=== PATIENT | male | born 1950 | race Caucasian/White ===

== ENCOUNTER 2018-08-31 13:24 | Emergency (ER) | payer OTHER ==
[~2018-08-31] VITALS: Ht 172.7 cm; Wt 79.4 kg
[2018-08-31] MEDS ORDERED: AMLODIPINE BESY10 MG PO (13:32)
[2018-08-31] MEDS ORDERED: METFORMIN HCL500 MG PO (13:32)
[2018-08-31] MEDS ORDERED: SYNTHROID175 MCG PO (13:33)
[2018-08-31] MEDS ORDERED: AMARYL2 MG PO (13:35)
[2018-08-31] MEDS ORDERED: NORFLEX100 MG PO (14:42)
[2018-08-31] MEDS ORDERED: IBU800 MG PO (14:42)
[2018-08-31 14:50] VITALS: BP 166/85
== END 2018-08-31 14:50 | disposition home or self-care (01) ==
LOC: M.ERS 13:24
DX: M54.5 Low back pain (principal)

== ENCOUNTER 2021-09-28 08:10 | Inpatient (IN) | payer OTHER ==
[~2021-09-28] VITALS: Ht 172.7 cm; Wt 73.5 kg
[~2021-09-28 08:10] MED LIST: AMARYL2 MG PO; AMLODIPINE BESY10 MG PO; IBU800 MG PO; METFORMIN HCL500 MG PO; NORFLEX100 MG PO; SYNTHROID175 MC1 PO
[2021-09-28 08:34] VITALS: BP 131/71
[2021-09-28 08:56] LABS: ABSOLUTE BASOPHILS 0.1 thou/uL (0.0-0.2); ABSOLUTE LYMPHOCYTES 1.3 thou/uL (0.8-5.3); ABSOLUTE MONOCYTES 0.6 thou/uL (0.0-1.2); ABSOLUTE NEUTROPHILS 10.2 thou/uL (1.6-8.1); BASOPHILS 0.6 %; HEMATOCRIT 38.9 % (42.0-52.0); HEMOGLOBIN 13.2 gm/dL (14.0-18.0); LYMPHOCYTES 10.8 %; MCH 29.6 pg (26.0-34.0); MCHC 33.9 g/dL (28.0-37.0); MCV 87.2 fL (80.0-100.0); MONOCYTES 4.6 %; MPV 8.2 fl. (7.2-11.1); NUCLEATED RBCS 0 /100WBC; PLATELET COUNT* 388 thou/uL (150-400); RBC 4.46 mil/uL (4.50-6.00); RDW-CV 13.6 % (10.5-14.5); WBC 12.1 thou/uL (4.0-11.0)
[2021-09-28 09:12] LABS: CALCIUM 8.1 mg/dL (8.5-10.1); CREATININE 0.8 mg/dL (0.6-1.3)
[2021-09-28 09:19] LABS: POTASSIUM 2.5 mmol/L (3.5-5.1)
[2021-09-28 09:23] LABS: ALBUMIN 2.6 g/dL (3.4-5.0); MAGNESIUM 2.3 mg/dL (1.8-2.4); TOTAL BILIRUBIN 0.4 mg/dL (<0.1-1.0); TOTAL PROTEIN 7.2 g/dL (6.4-8.2)
--- NOTE | 2021-09-28 10:23 | EKG ---
[place] [address] ELECTROCARDIOGRAM REPORT Name: JUN ALCAZAR Micki Room: [facility]#: [id number] Admission: 09/28/21 Attend Phys: Discharge: Date of : 50 Date of Service: 09/28/21 0837 Report #: [id number] THIS REPORT FOR: //name// [facility] ED Test Date: 2021-09-28 Test Time: 08:37:59 Pat Name: JUN ALCAZAR Department: Room: Gender: Abatement Worker: : 1950 Requested By: Farhad Rachel Order Number: [id number] MD: Piter Martinez Measurements Intervals [place] Rate: 104 P: 54 [place]: 184 QRS: 27 QRSD: 105 T: -30 QT: 368 QTc: 484 Interpretive Statements Sinus tachycardia Probable left atrial enlargement Borderline T abnormalities, inferior leads Borderline prolonged QT interval No previous ECG available for comparison Electronically Signed On 09-28-2021 10:23:03 HISTORICAL SITE GUIDE by Piter Martinez [email or web address] <ELECTRONICALLY SIGNED> By: Piter Martinez MD, [facility] 09/28/21 1023 0837 0837 Piter Martinez MD, [facility] /EPI
[2021-09-28 16:41] LABS: BE 8.6 mmol/L (-2 to +3); PCO2 43.7 mmHg (35.0-45.0); PO2 87.4 mmHg (75.0-100.0); pH 7.494 (7.340-7.450)
[2021-09-28 17:21] VITALS: BP 132/66
[2021-09-28 21:30] VITALS: BP 129/79
[2021-09-29] VITALS (7 sets, daily range): BP systolic 118–132; BP diastolic 62–80
[2021-09-29 03:31] LABS: HEMATOCRIT 35.4 % (42.0-52.0); HEMOGLOBIN 11.7 gm/dL (14.0-18.0); MCH 29.2 pg (26.0-34.0); MCHC 33.2 g/dL (28.0-37.0); MPV 7.9 fl. (7.2-11.1); RBC 4.02 mil/uL (4.50-6.00); RDW-CV 13.7 % (10.5-14.5); WBC 8.7 thou/uL (4.0-11.0)
[2021-09-29 04:04] LABS: CALCIUM 7.5 mg/dL (8.5-10.1); CREATININE 0.7 mg/dL (0.6-1.3); POTASSIUM 3.1 mmol/L (3.5-5.1)
[2021-09-30] VITALS (7 sets, daily range): BP systolic 104–146; BP diastolic 51–82
[2021-09-30 06:07] LABS: HEMATOCRIT 37.8 % (42.0-52.0); HEMOGLOBIN 12.5 gm/dL (14.0-18.0); MCH 29.2 pg (26.0-34.0); MCV 88.5 fL (80.0-100.0); RBC 4.27 mil/uL (4.50-6.00); RDW-CV 13.7 % (10.5-14.5); WBC 13.3 thou/uL (4.0-11.0)
[2021-09-30 06:40] LABS: CALCIUM 7.5 mg/dL (8.5-10.1); CREATININE 0.7 mg/dL (0.6-1.3); POTASSIUM 3.2 mmol/L (3.5-5.1)
[2021-10-01 03:52] VITALS: BP 133/78
[2021-10-01 04:46] LABS: HEMATOCRIT 37.8 % (42.0-52.0); HEMOGLOBIN 12.4 gm/dL (14.0-18.0); MCH 28.8 pg (26.0-34.0); MCHC 32.7 g/dL (28.0-37.0); MCV 88.1 fL (80.0-100.0); MPV 7.9 fl. (7.2-11.1); RBC 4.29 mil/uL (4.50-6.00); WBC 14.2 thou/uL (4.0-11.0)
[2021-10-01 04:47] LABS: PCO2 36.2 mmHg (35.0-45.0); PO2 83.5 mmHg (75.0-100.0); pH 7.479 (7.340-7.450)
[2021-10-01 04:58] LABS: CALCIUM 7.4 mg/dL (8.5-10.1); CREATININE 0.6 mg/dL (0.6-1.3); POTASSIUM 3.3 mmol/L (3.5-5.1)
[2021-10-01 07:30] VITALS: BP 120/64
[2021-10-01 12:09] VITALS: BP 116/66
--- NOTE | 2021-10-01 13:50 | EKG ---
[place] [address] ELECTROCARDIOGRAM REPORT Name: JUN ALCAZAR Room: [address] ADM IN .R.#: [id number] Admission: 09/28/21 Attend Phys: Enzo Mccabe, Discharge: Date of : 50 Date of Service: 10/01/21 1119 Report #: [id number] THIS REPORT FOR: //name// [facility] Test Date: 2021-10-01 Test Time: 11:19:10 Pat Name: JUN ALCAZAR Department: Room: [facility] Gender: M Instructional Supervisor: : 1950 Requested By: Og Jacobson Order Number: [id number] [place] MD: Leroy Le Measurements Intervals [place] Rate: 92 P: -6 [place]: 177 QRS: 18 QRSD: 94 T: 34 QT: 392 QTc: 485 Interpretive Statements Sinus rhythm Borderline prolonged QT interval Compared to ECG 09/28/2021 08:37:59 Sinus tachycardia no longer present Minor nonspecific ST-T alterations persist Electronically Signed On 10-01-2021 13:50:08 RESPIRATORY THERAPIST ASSISTANT by Leroy Le [email or web address] <ELECTRONICALLY SIGNED> By: Leroy Le MD, [facility] 10/01/21 1350 1119 1119 Leroy Le MD, [facility] /EPI
[2021-10-01 16:00] VITALS: BP 93/57
[2021-10-01 20:00] VITALS: BP 109/56
[2021-10-01 20:41] LABS: INFLUENZA A ANTIGEN Negative (Negative); INFLUENZA B ANTIGEN Negative (Negative)
[2021-10-02] VITALS: BP 115/67
[2021-10-02 04:00] VITALS: BP 107/72
[2021-10-02 04:16] LABS: HEMATOCRIT 40.2 % (42.0-52.0); HEMOGLOBIN 13.2 gm/dL (14.0-18.0); MCH 29.2 pg (26.0-34.0); MCHC 32.8 g/dL (28.0-37.0); MCV 88.9 fL (80.0-100.0); MPV 7.9 fl. (7.2-11.1); NUCLEATED RBCS 0 /100WBC; PLATELET COUNT* 608 thou/uL (150-400); RBC 4.52 mil/uL (4.50-6.00); WBC 13.4 thou/uL (4.0-11.0)
[2021-10-02 04:49] LABS: ALBUMIN 2.5 g/dL (3.4-5.0); CALCIUM 7.9 mg/dL (8.5-10.1); CREATININE 0.6 mg/dL (0.6-1.3); TOTAL BILIRUBIN 0.4 mg/dL (<0.1-1.0); TOTAL PROTEIN 6.3 g/dL (6.4-8.2)
[2021-10-02 04:50] LABS: POTASSIUM 4.4 mmol/L (3.5-5.1)
[2021-10-02 06:35] LABS: ABSOLUTE LYMPHOCYTES 0.8 thou/uL (0.8-5.3); ABSOLUTE MONOCYTES 0.7 thou/uL (0.0-1.2); ABSOLUTE NEUTROPHILS 11.9 thou/uL (1.6-8.1)
[2021-10-02 06:36] LABS: PLATELET ESTIMATE INCREASED
[2021-10-02 08:00] VITALS: BP 116/79
[2021-10-02 11:56] VITALS: BP 132/66
[2021-10-02 16:26] VITALS: BP 109/60
[2021-10-02 20:00] VITALS: BP 118/72
[2021-10-03] VITALS: BP 148/59
[2021-10-03 04:00] VITALS: BP 138/70
[2021-10-03 05:33] LABS: BE 3.7 mmol/L (-2 to +3); PCO2 35.6 mmHg (35.0-45.0); pH 7.495 (7.340-7.450)
[2021-10-03 05:38] LABS: PO2 51.2 mmHg (75.0-100.0)
[2021-10-03 05:39] LABS: ALBUMIN 2.3 g/dL (3.4-5.0); CALCIUM 7.8 mg/dL (8.5-10.1); CREATININE 0.6 mg/dL (0.6-1.3); MAGNESIUM 2.1 mg/dL (1.8-2.4); POTASSIUM 4.3 mmol/L (3.5-5.1); TOTAL BILIRUBIN 0.4 mg/dL (<0.1-1.0); TOTAL PROTEIN 5.8 g/dL (6.4-8.2)
[2021-10-03 08:00] VITALS: BP 122/79
[2021-10-03 12:00] VITALS: BP 124/72
[2021-10-03 20:00] VITALS: BP 116/65
[2021-10-04 00:26] VITALS: BP 135/76
[2021-10-04 04:00] VITALS: BP 117/66
[2021-10-04 05:02] LABS: HEMATOCRIT 37.9 % (42.0-52.0); HEMOGLOBIN 12.4 gm/dL (14.0-18.0); MCH 29.2 pg (26.0-34.0); MCHC 32.8 g/dL (28.0-37.0); MCV 89.1 fL (80.0-100.0); MPV 8.3 fl. (7.2-11.1); NUCLEATED RBCS 0 /100WBC; PLATELET COUNT* 643 thou/uL (150-400); RBC 4.26 mil/uL (4.50-6.00); RDW-CV 14.5 % (10.5-14.5); WBC 12.7 thou/uL (4.0-11.0)
[2021-10-04 05:15] LABS: ALBUMIN 2.4 g/dL (3.4-5.0); CALCIUM 7.9 mg/dL (8.5-10.1); CREATININE 0.7 mg/dL (0.6-1.3); MAGNESIUM 2.2 mg/dL (1.8-2.4); POTASSIUM 3.8 mmol/L (3.5-5.1); TOTAL BILIRUBIN 0.3 mg/dL (<0.1-1.0)
[2021-10-04 07:05] LABS: ABSOLUTE LYMPHOCYTES 1.1 thou/uL (0.8-5.3); ABSOLUTE NEUTROPHILS 10.6 thou/uL (1.6-8.1); BASOPHILS 0.2 %; EOSINOPHILS 0.1 %; LYMPHOCYTES 8.7 %; MONOCYTES 7.8 %; PLATELET ESTIMATE INCREASED; POLYS 83.2 %
[2021-10-04 08:00] VITALS: BP 124/70
[2021-10-04 12:59] VITALS: BP 104/62
[2021-10-04 17:30] VITALS: BP 125/67
[2021-10-04 20:00] VITALS: BP 114/60
[2021-10-05] VITALS: BP 130/61
[2021-10-05 04:22] VITALS: BP 123/71
[2021-10-05 04:33] LABS: HEMATOCRIT 39.4 % (42.0-52.0); HEMOGLOBIN 12.8 gm/dL (14.0-18.0); MCH 28.9 pg (26.0-34.0); MCHC 32.5 g/dL (28.0-37.0); MCV 88.7 fL (80.0-100.0); RBC 4.44 mil/uL (4.50-6.00); RDW-CV 14.2 % (10.5-14.5); WBC 13.1 thou/uL (4.0-11.0)
[2021-10-05 05:53] LABS: BE 6.4 mmol/L (-2 to +3); PCO2 40.9 mmHg (35.0-45.0); pH 7.488 (7.340-7.450)
[2021-10-05 06:31] LABS: CALCIUM 8.3 mg/dL (8.5-10.1); CREATININE 0.7 mg/dL (0.6-1.3); POTASSIUM 4.3 mmol/L (3.5-5.1)
[2021-10-05 09:00] VITALS: BP 117/62
[2021-10-05 12:00] VITALS: BP 110/59
[2021-10-05] MEDS ORDERED: PREDNISONE 10 M10 MG PO (16:04)
[2021-10-05 16:15] VITALS: BP 110/59
--- NOTE | 2021-10-06 18:57 | CON ---
[address] [address] CONSULTATION Name: JUN ALCAZAR Room: [address] IN M.R.#: [id number] Admission: 09/28/21 Attend Phys: Enzo Mccabe MD Discharge: 10/05/21 Date of : 50 Report #: [id number] THIS REPORT FOR: cc: Tim Forrest K. Steven DO Pervez, Adeel MD ~ DATE OF CONSULTATION: 10/01/2021 REQUESTING PHYSICIAN: Dr. Jacobson INDICATION FOR CONSULTATION: Acute hypoxemic respiratory failure secondary to COVID-19. HISTORY OF PRESENT ILLNESS: This is a 71-year-old gentleman. He is not vaccinated for COVID-19. Does not have a previous history of a cardiac or respiratory disease. He is now admitted with acute hypoxemic respiratory failure secondary to COVID. Currently, he is on a heated high-flow nasal cannula. He is, however, maintaining O2 saturation with this. His blood pressure is on the lower side; however, he is on Norvasc. He also has a low potassium level. Potassium has been replaced. He does not have significant swelling of lower extremities. REVIEW OF SYSTEMS: For ten points is negative except as mentioned above. PAST MEDICAL HISTORY: Hypertension, gastroesophageal reflux disease, hypothyroidism, type 2 diabetes. SOCIAL HISTORY: No known history of smoking, alcohol abuse, or drug abuse. CURRENT MEDICATIONS: List in [place] reviewed. HOME MEDICATIONS: List in [place] reviewed. FAMILY HISTORY: No pertinent family history. ALLERGIES: No known drug allergies. PHYSICAL EXAMINATION: GENERAL: He is alert, awake and oriented. VITAL SIGNS: Vitals are in the records. These are reviewed. NECK: Does not show raised JVP. CHEST: Breath sounds equal, decreased. No added sounds. HEART: Regular. No murmur. ABDOMEN: Soft and nontender. EXTREMITIES: Lower extremities show no edema [place] [address] CONSULTATION Name: JUN ALCAZAR Room: [address]#: [id number] Admission: 09/28/21 Attend Phys: Enzo Mccabe MD Discharge: 10/05/21 Date of : 50 Report #: [id number] LABORATORY DATA: The patient's CTA chest, chest x-ray as well as lab work is in [facility] and this is reviewed. ASSESSMENT AND PLAN: 1. Acute hypoxemic respiratory failure secondary to COVID-19. Continue to titrate oxygen. Avoid supine sleep. 2. COVID-19. Considering significant hypoxemia, increased his dexamethasone dose to 6 mg p.o. b.i.d. I will also go ahead and start him on remdesivir. If Actemra is available, then it may be of benefit; however, it is in short supply. 3. Pulmonary infiltrates. Agree with current antibiotics. We will order more cultures. 4. Fluid overload. His BUN is low. Overall, he appears to be total body fluid overloaded, but his blood pressure is on the lower side and potassium is also low. Therefore, I did not give him Lasix now. Discontinue the Norvasc. His potassium has been replaced. We will assess for diuresis tomorrow. 5. Uncontrolled diabetes. Since I am increasing his dexamethasone dose, I increased his insulin sliding scale to high dose. He is currently on NPH. May consider switching NPH over to Lantus and also increasing the dose. 6. Deep venous thrombosis prophylaxis. He is on Lovenox. 7. Clostridium difficile prophylaxis, Lactinex. 8. Gastrointestinal prophylaxis, Pepcid. Thanks for this consultation. <ELECTRONICALLY SIGNED> By: Malik Elam MD 10/06/21 1857 1754 1933Arudi Elam MD /nt
== END 2021-10-05 16:00 | disposition home or self-care (01) | DRG 177 ==
LOC: M.ERS 08:10 → M.ORTHSURG 10:29 → M.TBA-ER 10:29 → M.ORTHSURG 09-30 00:02
PROVIDERS: Family Medicine; Internal Medicine; Internal Medicine Critical Care Medicine; ADMIT Internal Medicine; ATTEND Internal Medicine
PROC: 5A09357 Assistance with Respiratory Ventilation, Less than 24 Consecutive Hours, Continuous Positive Airway Pressure (ICD-10-PCS; principal; 2021-09-28)
PROC: XW033E5 Introduction of Remdesivir Anti-infective into Peripheral Vein, Percutaneous Approach, New Technology Group 5 (ICD-10-PCS; 2021-09-28)
PROC: 5A0955A Assistance with Respiratory Ventilation, Greater than 96 Consecutive Hours, High Flow/Velocity Cannula (ICD-10-PCS; 2021-09-30)
PROC: 5A09357 Assistance with Respiratory Ventilation, Less than 24 Consecutive Hours, Continuous Positive Airway Pressure (ICD-10-PCS; 2021-10-01)
PROC: 5A09357 Assistance with Respiratory Ventilation, Less than 24 Consecutive Hours, Continuous Positive Airway Pressure (ICD-10-PCS; 2021-10-04)
DX: U07.1 COVID-19 (principal); J96.01 Acute respiratory failure with hypoxia; J12.82 Pneumonia due to coronavirus disease 2019; E87.1 Hypo-osmolality and hyponatremia; E87.6 Hypokalemia; E11.65 Type 2 diabetes mellitus with hyperglycemia; Z79.4 Long term (current) use of insulin; E03.9 Hypothyroidism, unspecified; K21.9 Gastro-esophageal reflux disease without esophagitis; I10 Essential (primary) hypertension; E83.51 Hypocalcemia; T38.0X5A Adverse effect of glucocorticoids and synthetic analogues, initial encounter